=== PATIENT | female | born 1955 | race Caucasian/White ===

== ENCOUNTER 2018-11-08 10:07 | Emergency (ER) | payer OTHER ==
[2018-11-08 10:16] VITALS: BMI 29.2
--- NOTE | 2018-11-08 10:44 | PDOC ---
History of Present Illness - General Chief Complaint: Pain Stated Complaint: DIZZINESS/WEAKNESS/BACK PAIN Time Seen by Provider: 11/08/18 10:44 History Source: Patient Exam Limitations: No Limitations - History of Present Illness Initial Comments: 63 year old female with PMH chronic lower back pain, herniated lumbar discs, pinched spinal nerves, HTN, HLD, DM presented to ED for low back pain since yesterday after her physical therapy session. 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 Pt admitted to bilateral lateral upper leg numbness, x1 month. Pt denied fever, chills, nausea, vomiting, diarrhea, abdominal pain, weight loss , bowel/bladder incontinence, genital numbness. ROS General: denied fever, chills, generalized weakness. HEENT: denied sore throat, rhinorrhea, ear pain. Cardiovascular: denied chest pain, palpitations, syncope, diaphoresis. Respiratory: denied shortness of breath, cough, sputum production, hemoptysis. Gastrointestinal: denied abdominal pain, nausea, vomiting, diarrhea, constipation, blood in stool. Genitourinary: denied dysuria, increased urinary frequency, hematuria, urinary incontinence, flank pain. Back: admitted to back pain. Musculoskeletal: admitted to bilateral lower extremity pain. denied joint pain, joint swelling. Neurological: admitted to numbness, tingling. denied headache, dizziness, weakness. Integumentary: denied rash, laceration, abrasion. Hematologic/Lymphatic: denied bruising or bleeding. PE Constitutional: Well-nourished, Well-developed, appearing stated age. HEENT: head is normocephalic, atraumatic. EOMI. PERRLA. no posterior pharyngeal erythema.no tonsillar swelling or exudates bilaterally. uvula midline. no peritonsillar swelling, tenderness or abscess. no jaw tenderness or misalignment. Neck: supple. Full ROM. Cardiovascular: regular heart rhythm. no murmurs. no pericardial friction rub. Respiratory: clear to auscultation bilaterally. no crackles, rhonchi or wheezing. no stridor. Gastrointestinal: soft, nontender. normal bowel sounds. no rebound, guarding, masses. Back: midline lumbar spine tenderness to palpation. no paraspinal tenderness to palpation. positive straight leg testing on the right. negative straight leg testing negative. no rash to back. no step offs. full sensation to bilateral LE. Extremities: peripheral pulses intact. no lower extremity edema. Neurological: CN 2-12 grossly intact. moves all four extremities. 5/5 strength all extremities. Psych: awake, alert, oriented x3. follows commands. answers questions appropriately. Past History - Past Medical History Allergies/Adverse Reactions: Allergies Allergy/AdvReac Type Severity Reaction Status Date / Time No Known Allergies Allergy Verified 11/08/18 10:16 Home Medications: Ambulatory Orders Diazepam [Valium] 2 mg PO HS PRN #15 tablet MDD 3 11/08/18 COPD: No Diabetes: Yes GI Disorders: (beginnings of renal faillure) HTN: Yes Hypercholesterolemia: Yes Other medical history: chronic lower back pain, arthritis, dislocated discs , pinched nerves - Surgical History Cholecystectomy: Yes - Suicide/Smoking/Psychosocial Hx Smoking History: Never smoked Medical Decision Making - Medical Decision Making 63 year old female with above PMH presented to ED for back pain after physical therapy yesterday. Examination revealed midline lumbar spine tenderness, positive right sided straight leg testing. Initial Vital Signs Temp Pulse Resp BP Pulse Ox 98.4 F 79 18 150/70 99 11/08/18 10:11 11/08/18 10:11 11/08/18 10:11 11/08/18 10:11 11/08/18 10:11 Afebrile. No tachycardia. No tachypnea. Mild hypertension. No hypoxia on room air. Labs ordered: UA/UC Medications ordered: Percocet x1, Valium 2 mg PO once Imaging ordered: None 11/08/18 11:49 Laboratory Results - last 24 hr 11/08/18 11:45 POC Glucometer 86 11/08/18 12:33 Urine Test Results Urine Color Yellow 11/08/18 12:00 Urine Appearance Clear 11/08/18 12:00 Urine pH 7.0 (5.0-8.0) 11/08/18 12:00 Ur Specific [place] 1.006 (1.010-1.035) L 11/08/18 12:00 Urine Protein Negative (NEGATIVE) 11/08/18 12:00 Urine Glucose (UA) Negative (NEGATIVE) 11/08/18 12:00 Urine Ketones Negative (NEGATIVE) 11/08/18 12:00 Urine Blood 1+ (NEGATIVE) H 11/08/18 12:00 Urine Nitrite Negative (NEGATIVE) 11/08/18 12:00 Urine Bilirubin Negative (NEGATIVE) 11/08/18 12:00 Ur Leukocyte Esterase Negative (NEGATIVE) 11/08/18 12:00 Negative for UTI. Microscopic hematuria - pt reported history of the same. Pt showed improvement of back pain. Pt requesting discharge. Pt has script for outpatient MRI but has not made the appointment. Pt advised to make appt for OP MRI, F/U with PMR/PCP. Pt discharged. *DC/Admit/Observation/Transfer Diagnosis at time of Disposition: Back pain, History of herniated intervertebral disc, Microscopic hematuria - Discharge Dispostion Disposition: HOME Condition at time of disposition: Improved Decision to Admit order: No - Prescriptions Prescriptions: Diazepam [Valium] 2 mg PO HS PRN #15 tablet MDD 3 PRN Reason: Pain - Referrals Referrals: Mauricio Araujo MD [Staff Physician] - Alan Tolentino MD [Staff Physician] - - Patient Instructions Printed Discharge Instructions: DI for Low Back Pain, DI for Herniated Disc, DI for Hematuria Additional Instructions: Your urine analysis showed blood in your urine, follow up with a urologist on this finding. Your blood sugar level was normal. I have sent a prescription for a pain reliever and muscle relaxer to your pharmacy to take for pain. Take as advised on labels. Make an appointment for your outpatient MRI - call today. Follow up with your primary care doctor within 3 days. Your care is not complete until you follow up. Bring all paperwork given to you today. Bring all medication bottles you are currently taking. Follow up with a urologist within 5 days. Your care is not complete until you follow up. Bring all paperwork given to you today. Bring all medication bottles you are currently taking. I have provided you with multiple referrals. Return to the Emergency Department for increasing pain, vomiting, fever, loss of control of bowel/bladder, numbness to genital region, weakness, new numbness/ tingling, weight loss or any other new, worsening or concerning symptoms. \ Castle anlisis de orina fue evelyn en castle orina, kandice un seguimiento con un urlogo sobre jasson hallazgo. Castle nivel de azcar en la evelyn era normal. Envi chente receta para un analgsico y un relajante muscular a castle farmacia para que lo tome. Tmelo bart se aconseja en las etiquetas. Kandice chente susie para castle resonancia magntica ambulatoria: krystal winslow. Kandice un seguimiento con castle mdico de atencin primaria dentro de los 3 galvez. Castle atencin no estar completa hasta que realice el seguimiento. Traiga toda la documentacin que le entreguemos hoy. Traiga todas las botellas de medicamentos que est tomando actualmente. Kandice un seguimiento con un urlogo dentro de los 5 galvez. Castle atencin no estar completa hasta que realice el seguimiento. Traiga toda la documentacin que le entreguemos hoy. Traiga todas las botellas de medicamentos que est tomando actualmente. Te he proporcionado mltiples referencias. Regrese al Departamento de Emergencias para aumentar el dolor, los vmitos, la fiebre, la prdida del control del intestino / vejiga, entumecimiento de la regin genital, debilidad, nuevo entumecimiento / hormigueo, prdida de peso o cualquier otro sntoma nuevo, que empeore o se relacione. Print Language: CROATIAN - Post Discharge Activity Forms/Work/School Notes: Back to Work
[2018-11-08] MEDS ORDERED: diazePAM 2 MG TABLET PO ONE (11:58)
[2018-11-08 12:29] LABS: EPI CELLS 0.2 /HPF (0-5/HPF); HYALINE CASTS 0 /lpf (0-8); URINE APPEARANCE CLEAR; URINE BACTERIA 0.8 /hpf (NEGATIVE); URINE BILIRUBIN NEGATIVE (NEGATIVE); URINE COLOR YELLOW; URINE GLUCOSE (UA) NEGATIVE (NEGATIVE); URINE KETONE NEGATIVE (NEGATIVE); URINE LEUK ESTERASE NEGATIVE (NEGATIVE); URINE NITRITE NEGATIVE (NEGATIVE); URINE PROTEIN NEGATIVE (NEGATIVE); URINE RBC 6 /hpf (0-4); URINE UROBILINOGEN 0.2 mg/dL (0.2-1.0); URINE WBC 0 /hpf (0-5)
--- NOTE | 2018-11-08 13:08 | PDOC ---
Documentation entered by John Ervin SCRIBE, acting as scribe for Indigo Forrest MD. Indigo Forrest MD: This documentation has been prepared by the Arcadio grijalva Xhesika, SCRIBE, under my direction and personally reviewed by me in its entirety. I confirm that the documentation accurately reflects all work, treatment, procedures, and medical decision making performed by me. Attending Attestation - Resident Resident Name: MandeepLucila - ED Attending Attestation I have performed the following: I have examined & evaluated the patient, The case was reviewed & discussed with the resident, I agree w/resident's findings & plan, Exceptions are as noted - HPI HPI: 11/08/18 12:50 The patient is a 63 year old female with a significant PMH of chronic lower back pain, herniated lumbar discs, pinched spinal nerves, HTN, HLD, and DM who presents to the ED for lower back pain since yesterday. 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 Patient notes she has been endorsing 1 month of b/l upper leg numbness. The patient denies chest pain, shortness of breath, headache and dizziness. Denies fever, chills, cough, nausea, vomiting, diarrhea and constipation. Denies dysuria, frequency, urgency and hematuria. Allergies: NKDA Past surgical history: Cholecystectomy - Physicial Exam PE: 11/08/18 13:03 awake alert lungs clear bilat heartrrr no mrg abdsoft nt nd no midline spinal tenderness. paraspinal tenderness lumbosacral right just right of spine. mild m spasm. positive straight right leg raise. sensation intact bilat lower ext. 5/5 bilat lower ext strength. - Medical Decision Making 11/08/18 13:04 63 yo F with h/o back pain, in physical therapy here wtih worsening pain. no new weakness or numbness. pain radiates down right leg worse wtih going from sitting to standing and walking. has had injections in spin in the past. has had an MRI 6 yrs ago, has a prescription for outpt MRI hasnt mad apptointment yet . no belgica or bladder incontinence, no new numbness. on exam pt normal nuerological exam lower ext. positive straight leg raise. pt h/o renal insufficiency. avoiding nsaids. will treat with percocet , and valium as needed. given peroccet in ed feels better would like to go home. urine noted for microscopic hematuria which she states she has had in the past. will give urology followup.
[2018-11-08] MEDS ORDERED: diazePAM 2 MG TABLET ONE (13:17)
[2018-11-08 13:22] VITALS: BP 136/78; PULSE 88; TEMP 98.5
== END 2018-11-08 13:22 | disposition home or self-care (01) ==
LOC: JER 10:07
DX: M51.26 Other intervertebral disc displacement, lumbar region (principal); I10 Essential (primary) hypertension; E78.5 Hyperlipidemia, unspecified; E11.9 Type 2 diabetes mellitus without complications
CPT/HCPCS: 81003; 82962; 87086; 99283-25